=== PATIENT | female | born 1955 | race Caucasian/White ===

== ENCOUNTER → 2017-03-05 | Outpatient (CLI) | payer BC | LOC: KOH-I 08:00 | DX: R10.84 Generalized abdominal pain (principal); R31.29 Other microscopic hematuria; N28.9 Disorder of kidney and ureter, unspecified | CPT/HCPCS: 74176 ==

== ENCOUNTER → 2017-03-28 | Outpatient (CLI) | payer BC | LOC: KOH-I 08:17 | DX: N28.89 Other specified disorders of kidney and ureter (principal); N20.0 Calculus of kidney | CPT/HCPCS: 74170; Q9962 ==

== ENCOUNTER → 2021-03-09 | Day surgery (SDC) | payer BC ==
[~2021-03-09] MED LIST: ALLERGY RELIEF180 MG PO; CRESTOR20 MG PO; DYMISTA NASAL S23 GM; FAMOTIDINE40 MG PO; FLONASE 0.05% N16 GM; FOLTX TABLET1 EACH PO; GELATIN600 MG PO; METFORMIN HCL850 MG PO
== END | disposition home or self-care (01) ==
LOC: OR 03-02 09:00
DX: Z12.11 Encounter for screening for malignant neoplasm of colon (principal); K57.30 Diverticulosis of large intestine without perforation or abscess without bleeding; D12.2 Benign neoplasm of ascending colon; D12.3 Benign neoplasm of transverse colon; K21.9 Gastro-esophageal reflux disease without esophagitis; Z20.822 Contact with and (suspected) exposure to COVID-19; Z79.84 Long term (current) use of oral hypoglycemic drugs; Z86.010 Personal history of colon polyps; Z79.899 Other long term (current) drug therapy; Z90.49 Acquired absence of other specified parts of digestive tract; Z82.49 Family history of ischemic heart disease and other diseases of the circulatory system
CPT/HCPCS: J2704; J7030

== ENCOUNTER → 2022-01-30 | Outpatient (CLI) | payer MEDICARE, BC | LOC: KOH-I 15:26 | DX: M47.26 Other spondylosis with radiculopathy, lumbar region (principal) | CPT/HCPCS: 72100; 73502 ==